=== PATIENT | female | born 1950 | race Caucasian/White ===

== ENCOUNTER 2019-04-18 14:57 | Inpatient (IN) ==
[2019-04-18] MEDS ORDERED: Isovue-370 500 ML BOTTLE IVP ONE (15:25)
[2019-04-18] MEDS ORDERED: Pantoprazole 40 MG VIAL IVP ONE (15:27)
[2019-04-18 15:58] LABS: Basophils % 0.3 %; Eosinophils % 0.2 %; Hematocrit 42.7 % (35.3-44.9); Hemoglobin 14.3 g/dL (11.5-15.4); Immature Granulocytes % 0.2 % (0-4); Lymphocytes # 1.6 K/mcL (0.6-4.6); Lymphocytes % 24.2 %; Mean Corpuscular HGB Conc 33.5 g/dL (31.6-35.5); Mean Corpuscular Hemoglobin 30.6 pg (28.0-33.3); Mean Corpuscular Volume 91.2 fL (83.0-100.0); Monocytes # 0.4 K/mcL (0.0-1.3); Monocytes % 6.3 %; Neutrophils # 4.6 K/mcL (1.6-8.9); Platelet Count 261 K/mcL (140-400); Red Blood Count 4.68 M/mcL (3.82-4.97); Red Cell Distribution Width 14.4 % (11.5-14.5); Segmented Neutrophils % 68.8 %; White Blood Count 6.7 K/mcL (4.3-11.1)
[2019-04-18 16:12] LABS: Prothrombin Time 11.2 Seconds (9.4-12.1)
[2019-04-18 16:15] LABS: Activated Partial Thrombo Time 33.9 Seconds (26.0-36.0)
[2019-04-18 16:22] LABS: BUN/Creatinine Ratio 28 (6-26); Blood Urea Nitrogen 24 mg/dL (8-23); Calcium 10.4 mg/dL (8.6-10.3); Carbon Dioxide 34 mEq/L (23-29); Chloride 98 mEq/L (98-107); Glucose 153 mg/dL (70-105); Magnesium 2.2 mg/dL (1.6-2.6); Osmolality,Calculated 293 (280-300); Potassium 3.5 mEq/L (3.5-5.1); Sodium 138 mEq/L (136-145); Troponin I < 0.03 ng/mL (< 0.04); eGFR For African Americans > 60 (> 60); eGFR For Non-African Americans > 60 (> 60)
[2019-04-18] MEDS ORDERED: Milk and Molasses Enema 200 ML RC ONE ×2 (18:50→21:07)
[2019-04-18] MEDS ORDERED: 0.9 % Sodium Chloride 1,000 ML IVC SCH (19:00)
[2019-04-18] MEDS ORDERED: Dextrose Gel 15 GM/37.5 ML TUBE PO PRN ×2 (20:15)
[2019-04-18] MEDS ORDERED: *HR* Dextrose 50 % in Water (Syg) 50 ML SYRINGE IVP PRN (20:15)
[2019-04-18] MEDS ORDERED: D5% in Water 1,000 ML IVC PRN (20:15)
[2019-04-18 20:58] LABS: Estimated Average Glucose 131 mg/dl
[2019-04-18 23:41] LABS: Hematocrit 44.4 % (35.3-44.9); Hemoglobin 15.3 g/dL (11.5-15.4)
[2019-04-19] MEDS: Insulin LISPRO 300 UNITS/3 ML VIAL SQ SCH ×4 (01:53→18:48)
[2019-04-19] MEDS ORDERED: Milk and Molasses Enema 200 ML RC ONE (06:00)
[2019-04-19] MEDS: Ringers Solution, Lactated 1,000 ML IVC SCH (14:21)
[2019-04-19 14:37] LABS: Hematocrit 38.5 % (35.3-44.9)
[2019-04-19 14:42] LABS: Hemoglobin 13.4 g/dL (11.5-15.4)
[2019-04-19] MEDS: Pantoprazole 40 MG VIAL IVP SCH (18:53)
[2019-04-20] MEDS: Ringers Solution, Lactated 1,000 ML IVC SCH (02:16)
[2019-04-20] MEDS: Insulin LISPRO 300 UNITS/3 ML VIAL SQ SCH ×2 (03:45→06:16)
[2019-04-20 05:31] LABS: Basophils % 0.4 %; Eosinophils # 0.1 K/mcL (0.0-0.6); Eosinophils % 1.3 %; Hematocrit 36.7 % (35.3-44.9); Hemoglobin 12.3 g/dL (11.5-15.4); Immature Granulocytes % 0.2 % (0-4); Lymphocytes # 1.5 K/mcL (0.6-4.6); Lymphocytes % 27.3 %; Mean Corpuscular HGB Conc 33.5 g/dL (31.6-35.5); Mean Corpuscular Hemoglobin 30.8 pg (28.0-33.3); Mean Corpuscular Volume 91.8 fL (83.0-100.0); Mean Platelet Volume 9.9 fL (9.4-12.4); Monocytes # 0.4 K/mcL (0.0-1.3); Monocytes % 7.7 %; Neutrophils # 3.4 K/mcL (1.6-8.9); Platelet Count 215 K/mcL (140-400); Red Cell Distribution Width 14.1 % (11.5-14.5); Segmented Neutrophils % 63.1 %; White Blood Count 5.3 K/mcL (4.3-11.1)
[2019-04-20] MEDS: Pantoprazole 40 MG VIAL IVP SCH ×2 (05:35→17:34)
[2019-04-20 05:50] LABS: BUN/Creatinine Ratio 20 (6-26); Blood Urea Nitrogen 15 mg/dL (8-23); Calcium 8.7 mg/dL (8.6-10.3); Carbon Dioxide 32 mEq/L (23-29); Chloride 101 mEq/L (98-107); Glucose 105 mg/dL (70-105); Osmolality,Calculated 287 (280-300); Sodium 138 mEq/L (136-145); eGFR For African Americans > 60 (> 60); eGFR For Non-African Americans > 60 (> 60)
[2019-04-20] MEDS ORDERED: Propofol 500 MG/50 ML INFUS..BTL ONE (10:00)
[2019-04-20] MEDS ORDERED: Lidocaine -MPF 2% 2 ML VIAL ONE (10:00)
[2019-04-20] MEDS ORDERED: *HR* Propofol 200 MG/20 ML VIAL IVP ONE (10:00)
[2019-04-20] MEDS ORDERED: *HR* PHENYLEPHRINE 1,000 MCG/10 ML SYRINGE IVP ONE (10:23)
[2019-04-21] MEDS: Pantoprazole 40 MG VIAL IVP SCH (05:31)
[2019-04-21 07:22] LABS: Hematocrit 42.9 % (35.3-44.9)
[2019-04-21 07:24] LABS: Hemoglobin 14.1 g/dL (11.5-15.4)
[2019-04-21] MEDS ORDERED: *HR* Propofol 200 MG/20 ML VIAL IVP ONE (07:34)
[2019-04-21] MEDS ORDERED: Lidocaine -MPF 2% 2 ML VIAL ONE (07:35)
[2019-04-21 08:19] VITALS: BP 98/63
[2019-04-21] MEDS ORDERED: *HR* OxyCODONE Immed Rel 5 MG TABLET PO PRN (08:21)
[2019-04-21] MEDS ORDERED: *HR* Promethazine 25 MG/ML VIAL IVP PRN (08:21)
[2019-04-21] MEDS ORDERED: *HR* HYDROmorphone (PF) 1 MG/ML SYRINGE IVP PRN (08:21)
[2019-04-21] MEDS ORDERED: Ondansetron 4 MG/2 ML VIAL IVP ONE (08:21)
[2019-04-21] MEDS ORDERED: D5% in Water 1,000 ML IVC PRN (09:38)
[2019-04-21] MEDS ORDERED: Dextrose Gel 15 GM/37.5 ML TUBE PO PRN ×2 (09:38)
[2019-04-21] MEDS ORDERED: *HR* Dextrose 50 % in Water (Syg) 50 ML SYRINGE IVP PRN (09:38)
[2019-04-21] MEDS ORDERED: Pantoprazole 40 MG VIAL IVP SCH (18:00)
== END 2019-04-21 12:31 | disposition home or self-care (01) | DRG 393 ==
LOC: 2ANU 14:57 → EMEROOARM 14:57 → SUATTDRO 19:10 → 2ANU 19:30
PROVIDERS: ADMIT Family Medicine; ATTEND Internal Medicine
PROC: ENDOEBX (2019-04-20 15:00)

== ENCOUNTER 2020-08-30 22:25 | Observation (INO) ==
[2020-08-30] MEDS ORDERED: Isovue-370 500 ML BOTTLE IVP ONE (22:41)
[2020-08-30 23:06] LABS: Basophils % 0.4 %; Eosinophils # 0.1 K/mcL (0.0-0.6); Eosinophils % 0.6 %; Hemoglobin 13.8 g/dL (11.5-15.4); Immature Granulocytes % 0.2 % (0-4); Lymphocytes # 1.7 K/mcL (0.6-4.6); Lymphocytes % 19.6 %; Mean Corpuscular HGB Conc 32.1 g/dL (31.6-35.5); Mean Corpuscular Hemoglobin 28.9 pg (28.0-33.3); Mean Platelet Volume 10.1 fL (9.4-12.4); Monocytes # 0.6 K/mcL (0.0-1.3); Monocytes % 7.5 %; Neutrophils # 6.1 K/mcL (1.6-8.9); Platelet Count 296 K/mcL (140-400); Red Blood Count 4.78 M/mcL (3.82-4.97); Red Cell Distribution Width 13.9 % (11.5-14.5); Segmented Neutrophils % 71.7 %; White Blood Count 8.4 K/mcL (4.3-11.1)
[2020-08-30 23:16] LABS: INR 1.1; Prothrombin Time 12.4 Seconds (9.4-12.1)
[2020-08-30 23:21] LABS: BUN/Creatinine Ratio 26 (6-26); Blood Urea Nitrogen 21 mg/dL (8-23); Calcium 9.6 mg/dL (8.6-10.3); Carbon Dioxide 29 mEq/L (23-29); Chloride 101 mEq/L (98-107); Glucose 187 mg/dL (70-105); Osmolality,Calculated 296 (280-300); Potassium 3.5 mEq/L (3.5-5.1); Sodium 139 mEq/L (136-145); eGFR For African Americans > 60 (> 60); eGFR For Non-African Americans > 60 (> 60)
[2020-08-31 01:12] LABS: Bilirubin,Urine Negative (Negative); Blood,Urine Negative (Negative); Clarity,Urine Clear (Clear); Color,Urine Light-Yellow (Yellow); Glucose,Urine (UA) Normal (Normal); Ketones,Urine Trace mg/dL (Negative); Leukocyte Esterase,Urine Negative (Negative); Nitrite,Urine Negative (Negative); Protein,Urine Negative (Neg-Trace); Specific Gravity,Urine > 1.030 (1.010-1.025); Urobilinogen,Urine Normal (Normal)
[2020-08-31] MEDS ORDERED: Milk and Molasses Enema 200 ML RC ONE (01:53)
[2020-08-31] MEDS ORDERED: polyethylene glycoL 3350 17 GM POWD.PACK PO PRN (01:53)
[2020-08-31] MEDS ORDERED: Acetaminophen 325 MG TABLET PO PRN (01:55)
[2020-08-31] MEDS ORDERED: Ondansetron 4 MG/2 ML VIAL IVP PRN (01:55)
[2020-08-31] MEDS ORDERED: Naloxone 0.4 MG/ML INJ IVP PRN (01:55)
[2020-08-31] MEDS ORDERED: D5% in Water 1,000 ML IVC PRN (01:58)
[2020-08-31] MEDS ORDERED: *HR* Dextrose 50 % in Water (Vial) 50 ML VIAL IVP PRN (01:58)
[2020-08-31] MEDS ORDERED: Dextrose Gel 15 GM/37.5 ML TUBE PO PRN ×2 (01:58)
[2020-08-31 06:34] LABS: Basophils % 0.4 %; Eosinophils % 0.5 %; Hematocrit 44.8 % (35.3-44.9); Hemoglobin 14.5 g/dL (11.5-15.4); Immature Granulocytes % 0.3 % (0-4); Lymphocytes # 1.5 K/mcL (0.6-4.6); Lymphocytes % 21.1 %; Mean Corpuscular HGB Conc 32.4 g/dL (31.6-35.5); Mean Corpuscular Hemoglobin 29.5 pg (28.0-33.3); Mean Corpuscular Volume 91.1 fL (83.0-100.0); Monocytes # 0.6 K/mcL (0.0-1.3); Monocytes % 7.8 %; Neutrophils # 5.1 K/mcL (1.6-8.9); Platelet Count 274 K/mcL (140-400); Red Blood Count 4.92 M/mcL (3.82-4.97); Segmented Neutrophils % 69.9 %; White Blood Count 7.3 K/mcL (4.3-11.1)
[2020-08-31 08:12] LABS: Estimated Average Glucose 151 mg/dl; Hemoglobin A1C 6.9 %
[2020-08-31] MEDS: Insulin LISPRO 300 UNITS/3 ML VIAL SUBQ SCH ×3 (08:51→17:14)
[2020-08-31] MEDS: Sennosides/Docusate Sodium TABLET PO SCH ×2 (10:45→20:08)
[2020-09-01] MEDS: Insulin LISPRO 300 UNITS/3 ML VIAL SUBQ SCH ×2 (08:42→11:46)
[2020-09-01] MEDS: Sennosides/Docusate Sodium TABLET PO SCH (08:45)
[2020-09-01 11:25] VITALS: BP 113/70
== END 2020-09-01 15:04 | disposition home or self-care (01) ==
LOC: EMEROOARM 22:25 → 3ANU 22:25 → SUATTDRO 08-31 01:23 → 3ANU 08-31 04:15
PROVIDERS: ADMIT Family Medicine; ATTEND Internal Medicine